=== PATIENT | female | born 1960 | race Caucasian/White ===

== ENCOUNTER 2019-09-17 09:50 | Emergency (ER) | payer MEDICAID, OTHER ==
[~2019-09-17] VITALS: Ht 167.6 cm; Wt 95.0 kg
[2019-09-17 09:51] VITALS: BP 113/63
[2019-09-17] MEDS ORDERED: ACETAMINOPHEN 325MG TABLET PO ONE (10:30)
== END 2019-09-17 10:50 | disposition home or self-care (01) ==
LOC: ER 09:50
DX: S00.83XA Contusion of other part of head, initial encounter (principal); Y04.2XXA Assault by strike against or bumped into by another person, initial encounter; Y07.59 Other non-family member, perpetrator of maltreatment and neglect; Y93.89 Activity, other specified; R03.0 Elevated blood-pressure reading, without diagnosis of hypertension; Y92.89 Other specified places as the place of occurrence of the external cause
CPT/HCPCS: 99283

== ENCOUNTER 2020-07-22 14:46 | Emergency (ER) | payer MEDICAID, OTHER ==
[~2020-07-22] VITALS: Ht 170.2 cm; Wt 80.0 kg
[2020-07-22 16:15] VITALS: BP 118/76
== END 2020-07-22 18:25 | disposition home or self-care (01) ==
LOC: ER 15:04 → EDBD 15:04 → ER 18:25
DX: F41.9 Anxiety disorder, unspecified (principal); Z88.0 Allergy status to penicillin; Z88.2 Allergy status to sulfonamides
CPT/HCPCS: 99283

== ENCOUNTER 2020-10-18 19:34 | Emergency (ER) | payer MEDICAID, OTHER ==
[~2020-10-18] VITALS: Ht 170.2 cm; Wt 86.0 kg
[2020-10-18 20:36] LABS: BASOPHILS % 0.5 % (0.0-2.0); EOSINOPHILS % 0.9 % (0.0-5.0); HEMATOCRIT. 39.6 % (36.0-48.0); HEMOGLOBIN. 13.3 g/dL (12.0-16.0); LYMPHOCYTES % 23.1 % (20.0-50.0); MEAN CORPUSCULAR HEMOGLOBIN 21.9 pg (28.0-32.0); MEAN CORPUSCULAR VOLUME 65.4 fL (81.0-99.0); MEAN PLATELET VOLUME 8.5 fl (7.4-10.4); MONOCYTES % 5.9 % (2.0-8.0); NEUTROPHILS % 69.6 % (40.0-76.0); PLATELET 223 x1000/uL (130-400); RED BLOOD CELL COUNT 6.06 mill/uL (4.2-5.4); RED CELL DISTRIBUTION WIDTH 19.8 % (11.6-14.6)
[2020-10-18 20:42] LABS: CHLORIDE 108 mEq/L (98-107)
[2020-10-18 21:03] LABS: PLATELET ESTIMATE NORMAL
[2020-10-19 03:03] LABS: CLARITY URINE CLEAR (CLEAR); COLOR URINE YELLOW (YELLOW); KETONES URINE NEGATIVE (NEGATIVE); LEUKOCYTE ESTERASE URINE NEGATIVE (NEGATIVE); NITRITE URINE NEGATIVE (NEGATIVE); OCCULT BLOOD URINE NEGATIVE (NEGATIVE); PH URINE 5.5 (4.5-8.0); PROTEIN URINE NEGATIVE (NEGATIVE); SPECIFIC GRAVITY URINE 1.077 (1.005-1.030)
[2020-10-19 03:19] LABS: *BENZODIAZEPINES SCREEN URINE NEGATIVE (NEGATIVE); *COCAINE SCREEN URINE NEGATIVE (NEGATIVE); CANNABINOID URINE SCREEN NEGATIVE (NEGATIVE); METHADONE URINE SCREEN NEGATIVE (NEGATIVE); OPIATES URINE SCREEN NEGATIVE (NEGATIVE); PHENCYCLIDINE URINE SCREEN NEGATIVE (NEGATIVE)
[2020-10-19 03:20] LABS: *AMPHETAMINES SCREEN URINE NEGATIVE (NEGATIVE); *BARBITURATES SCREEN URINE NEGATIVE (NEGATIVE)
[2020-10-19] MEDS ORDERED: IOHEXOL-300 100 ML BOTTLE ONE (06:34)
[2020-10-19] MEDS ORDERED: IOHEXOL-350 100 ML BOTTLE ONE (06:34)
[2020-10-19 08:32] VITALS: BP 120/65
== END 2020-10-19 08:33 | disposition home or self-care (01) ==
LOC: ER 19:34
DX: R07.89 Other chest pain (principal); F20.9 Schizophrenia, unspecified; F17.290 Nicotine dependence, other tobacco product, uncomplicated; Z88.0 Allergy status to penicillin; Z88.2 Allergy status to sulfonamides
CPT/HCPCS: 36415; 71045; 71275; 74177; 80053; 80305; 81003; 81025; 83690; 83880; 84484; 85025; 85379; 93005; 99285; 99406; Q9967; Z7610

== ENCOUNTER 2020-11-28 19:34 | Emergency (ER) | payer OTHER, MEDICAID ==
[~2020-11-28] VITALS: Ht 167.6 cm; Wt 82.0 kg
[2020-11-28] MEDS ORDERED: ACETAMINOPHEN 325MG TABLET PO ONE (21:30)
[2020-11-28 23:21] LABS: BASOPHILS % 0.8 % (0.0-2.0); EOSINOPHILS % 2.6 % (0.0-5.0); HEMATOCRIT. 34.7 % (36.0-48.0); HEMOGLOBIN. 11.5 g/dL (12.0-16.0); LYMPHOCYTES % 47.8 % (20.0-50.0); MEAN CORPUSCULAR HEMOGLOBIN 21.7 pg (28.0-32.0); MEAN CORPUSCULAR VOLUME 65.4 fL (81.0-99.0); MEAN PLATELET VOLUME 8.6 fl (7.4-10.4); MONOCYTES % 7.3 % (2.0-8.0); NEUTROPHILS % 41.5 % (40.0-76.0); PLATELET 181 x1000/uL (130-400); RED BLOOD CELL COUNT 5.32 mill/uL (4.2-5.4); RED CELL DISTRIBUTION WIDTH 19.4 % (11.6-14.6)
[2020-11-28 23:22] LABS: CHLORIDE 111 mEq/L (98-107)
[2020-11-28 23:53] LABS: PLATELET ESTIMATE NORMAL
[2020-11-29 01:21] LABS: *AMPHETAMINES SCREEN URINE NEGATIVE (NEGATIVE); *COCAINE SCREEN URINE NEGATIVE (NEGATIVE); CANNABINOID URINE SCREEN NEGATIVE (NEGATIVE); METHADONE URINE SCREEN NEGATIVE (NEGATIVE); OPIATES URINE SCREEN NEGATIVE (NEGATIVE); PHENCYCLIDINE URINE SCREEN NEGATIVE (NEGATIVE)
[2020-11-29 01:22] LABS: *BARBITURATES SCREEN URINE NEGATIVE (NEGATIVE); *BENZODIAZEPINES SCREEN URINE NEGATIVE (NEGATIVE)
[2020-11-29 14:50] VITALS: BP 118/52
== END 2020-11-29 16:35 | disposition home or self-care (01) ==
LOC: ER 19:34
DX: K80.80 Other cholelithiasis without obstruction (principal); F20.9 Schizophrenia, unspecified; F17.210 Nicotine dependence, cigarettes, uncomplicated; Z88.2 Allergy status to sulfonamides; Z88.0 Allergy status to penicillin
CPT/HCPCS: 36415; 71045; 76705; 80053; 80305; 83880; 84484; 85025; 93005; 99285

== ENCOUNTER 2022-06-07 14:09 | Emergency (ER) | payer MEDICAID, OTHER ==
[~2022-06-07] VITALS: Ht 167.6 cm; Wt 81.0 kg
[2022-06-07 14:17] VITALS: BP 130/64
[2022-06-07] MEDS ORDERED: ACETAMINOPHEN 325MG TABLET PO ONE (15:30)
[2022-06-07] MEDS ORDERED: BENZ200C52 MT (17:33)
== END 2022-06-07 19:29 | disposition home or self-care (01) ==
LOC: ER 14:09
DX: R05.9 Cough, unspecified (principal); F20.9 Schizophrenia, unspecified; Z88.2 Allergy status to sulfonamides; Z88.0 Allergy status to penicillin
CPT/HCPCS: 71045; 99283

== ENCOUNTER 2022-06-07 23:18 | Emergency (ER) | payer OTHER ==
[~2022-06-07] VITALS: Ht 162.6 cm; Wt 93.7 kg
[~2022-06-07 23:18] MED LIST: BENZ200C52 MT
[2022-06-07 23:38] VITALS: BP 126/66
[2022-06-08] MEDS ORDERED: ACETAMINOPHEN 325MG TABLET PO STA (00:24)
[2022-06-08] MEDS ORDERED: ASPIRIN 81MG TABLET PO ONE (00:30)
[2022-06-08 00:56] LABS: BASOPHILS % 0.7 % (0.0-2.0); EOSINOPHILS % 0.7 % (0.0-5.0); HEMATOCRIT. 35.5 % (36.0-48.0); HEMOGLOBIN. 11.7 g/dL (12.0-16.0); LYMPHOCYTES % 23.3 % (20.0-50.0); MEAN CORPUSCULAR HEMOGLOBIN 21.5 pg (28.0-32.0); MEAN CORPUSCULAR VOLUME 65.1 fL (81.0-99.0); MEAN PLATELET VOLUME 8.4 fl (7.4-10.4); MONOCYTES % 6.4 % (2.0-8.0); NEUTROPHILS % 68.9 % (40.0-76.0); PLATELET 254 x1000/uL (130-400); RED BLOOD CELL COUNT 5.46 mill/uL (4.2-5.4); RED CELL DISTRIBUTION WIDTH 19.4 % (11.6-14.6)
[2022-06-08 01:05] LABS: CHLORIDE 108 mEq/L (98-107)
[2022-06-08 05:38] LABS: PLATELET ESTIMATE NORMAL
== END 2022-06-08 03:36 | disposition home or self-care (01) ==
LOC: ER 23:18
DX: R07.89 Other chest pain (principal); Z88.0 Allergy status to penicillin
CPT/HCPCS: 36415; 71045; 80053; 83880; 84484; 85025; 99284; Z7610

== ENCOUNTER 2023-12-15 19:41 | Emergency (ER) | payer OTHER ==
[~2023-12-15] VITALS: Ht 165.1 cm; Wt 78.0 kg
[2023-12-15 19:50] VITALS: O2SAT 98
[2023-12-15] MEDS ORDERED: IBUPROFEN 400MG TABLET PO ONE (21:45)
[2023-12-15] MEDS ORDERED: ACETAMINOPHEN 325MG TABLET PO ONE (21:45)
[2023-12-15] MEDS: ACETAMINOPHEN 325MG TABLET PO NR (23:52)
[2023-12-15] MEDS: IBUPROFEN 400MG TABLET PO NR (23:52)
[2023-12-16] MEDS: TETANUS, DIPHTHERIA, PERTUSSIS VAC/PF 0.5ML (>10YR OLD) IM ONE (02:01)
[2023-12-16 02:05] VITALS: BP 128/45; PULSE 96; RESP 18; TEMP 36.78072; O2SAT 98
== END 2023-12-16 02:09 | disposition home or self-care (01) ==
LOC: ER 19:41
DX: S09.90XA Unspecified injury of head, initial encounter (principal); Z88.0 Allergy status to penicillin; Z88.2 Allergy status to sulfonamides; W18.09XA Striking against other object with subsequent fall, initial encounter; Y93.89 Activity, other specified; Y92.89 Other specified places as the place of occurrence of the external cause; Y99.8 Other external cause status
CPT/HCPCS: 90471; 90715; 99285

== ENCOUNTER 2024-08-25 20:21 | Emergency (ER) | payer MEDICAID, OTHER ==
[~2024-08-25] VITALS: Ht 162.6 cm; Wt 82.0 kg
[2024-08-25 20:32] VITALS: TEMP 37; O2SAT 98
[2024-08-25 22:01] LABS: BASOPHILS % 0.7 % (0.0-2.0); HEMATOCRIT. 34.8 % (36.0-48.0); HEMOGLOBIN. 11.4 g/dL (12.0-16.0); LYMPHOCYTES % 23.4 % (20.0-50.0); MEAN CORPUSCULAR HGB CONC 32.7 g/dL (31.0-37.0); MEAN CORPUSCULAR VOLUME 64.3 fL (81.0-99.0); MEAN PLATELET VOLUME 8.5 fl (7.4-10.4); MONOCYTES % 9.2 % (2.0-8.0); NEUTROPHILS % 59.7 % (40.0-76.0); PLATELET 247 x1000/uL (130-400); RED BLOOD CELL COUNT 5.41 mill/uL (4.2-5.4); RED CELL DISTRIBUTION WIDTH 19.5 % (11.6-14.6); WHITE BLOOD COUNT 9.2 x1000/uL (4.5-11.0)
[2024-08-25 22:03] LABS: ADD RBC MORPHOLOGY YES; DIFFERENTIAL COMMENT 1
[2024-08-25 22:11] LABS: CHLORIDE 104 mEq/L (98-107); POTASSIUM 3.8 mEq/L (3.5-5.1); SODIUM 139 mEq/L (136-145)
[2024-08-25 22:12] LABS: CARBON DIOXIDE 28 mEq/L (21-32); INR 0.9; PARTIAL THROMBOPLASTIN TIME 21.5 sec (23.4-31.0); PROTHROMBIN TIME 10.1 sec (9.6-11.0)
[2024-08-25 22:13] LABS: CALCIUM 9.6 mg/dL (8.7-10.4)
[2024-08-25 22:15] LABS: MICROCYTOSIS 3+; PLATELET ESTIMATE NORMAL
[2024-08-25 22:16] LABS: ANISOCYTOSIS 1+; HYPOCHROMASIA 2+
[2024-08-25 22:17] LABS: CREATININE 0.7 mg/dL (0.6-1.0); GLUCOSE 97 mg/dL (70-105); UREA NITROGEN BLOOD 13 mg/dL (9-23)
[2024-08-25 22:18] LABS: ETHANOL BLOOD < 10 mg/dL (<10); TROPONIN I HIGH SENSITIVITY 4 ng/L (3.0-34)
[2024-08-26 01:25] VITALS: BP 120/59; PULSE 85; RESP 20; O2SAT 98
== END 2024-08-26 01:47 | disposition home or self-care (01) ==
LOC: ER 20:21 → EDBEDREQ 21:51 → ER 08-26 01:47
DX: R06.02 Shortness of breath (principal); M79.604 Pain in right leg; M79.605 Pain in left leg; M79.89 Other specified soft tissue disorders; Z88.2 Allergy status to sulfonamides; Z88.0 Allergy status to penicillin; Z00.00 Encounter for general adult medical examination without abnormal findings; Z98.890 Other specified postprocedural states
CPT/HCPCS: 36415; 71045; 80048; 80320; 83880; 84484; 85025; 93005; 93970; 99285; G0480